=== PATIENT | male | born 1970 | race American Indian/Alaskan Native ===

== ENCOUNTER 2021-11-04 18:33 | Inpatient (IN) | payer MEDICAID ==
[2021-11-04] MEDS ORDERED: VANCOMYCIN/NS 1 GM/250 ML 1 GM/250 ML BAG IV ONE (21:43)
[2021-11-04] MEDS ORDERED: PIPERACIL/TAZOBACTA 4.5/NS 100 4.5 GM/100 ML VIAL IV ONE (21:44)
[2021-11-04 22:12] LABS: Basophils # (Auto) 0.1 K/mm3 (0.0-0.1); Basophils % (Auto) 0.7 % (0.0-1.8); Eosinophils # (Auto) 0.3 K/mm3 (0.0-0.4); Eosinophils % (Auto) 2.5 % (0.0-4.3); Hematocrit 34.7 % (35.5-45.6); Hemoglobin 12.4 gm/dl (11.8-15.2); Lymphocytes # (Auto) 2.1 K/mm3 (1.2-5.4); Lymphocytes % (Auto) 20.7 % (13.4-35.0); Mean Corpuscular HGB Conc 36 % (32-34); Mean Corpuscular Volume 77 fl (84-94); Monocytes # (Auto) 0.9 K/mm3 (0.0-0.8); Monocytes % (Auto) 9.3 % (0.0-7.3); Platelet Count 526 K/mm3 (140-440); Red Blood Count 4.54 M/mm3 (3.65-5.03); Red Cell Distribution Width 16.4 % (13.2-15.2)
[2021-11-04 22:24] LABS: INR 0.99 (0.87-1.13)
[2021-11-04 22:25] LABS: Partial Thromboplastin Time 26.3 Sec. (24.2-36.6)
--- NOTE | 2021-11-04 22:32 | XRay Report ---
RIGHT FOOT 3 VIEWS INDICATION / CLINICAL INFORMATION: wound, possible osteo COMPARISON: None available. FINDINGS: BONES / JOINT(S): No acute appearing fracture. Gross distraction involving the distal aspect of the f ifth metatarsal with adjacent periosteal reaction and bony fragmentation. The phalanges of the fifth digit are subluxed/dislocated. There is likely osteomyelitis involving the base of the proximal phala nx of the fifth digit. Small calcaneal spur. SOFT TISSUES: Large open wound at the level of the fifth metatarsal anteriorly and laterally. ADDITIONAL FINDINGS: None. Signer Name: Kobe Escobedo MD Signed: 11/04/2021 10:27 PM Workstation Name: [id number]
[2021-11-04 22:36] LABS: Alanine Aminotransferase 14 units/L (7-56); Albumin 3.5 g/dL (3.9-5); BUN/Creatinine Ratio 15; Blood Urea Nitrogen 16 mg/dL (9-20); Calcium 9.1 mg/dL (8.4-10.2); Hemolysis Index 5
[2021-11-04] MEDS ORDERED: cloNIDine 0.1 MG TAB PO ONE (23:43)
--- NOTE | 2021-11-04 23:49 | Emergency Department Report ---
- General Chief complaint: Skin/Abscess/Foreign Body Stated complaint: ABCESS ON LEFT FOOT Time Seen by Provider: 11/04/21 21:14 Source: patient Mode of arrival: Ambulatory Limitations: No Limitations - History of Present Illness Initial comments: 51-year-old obese black male patient with a past medical history of hypertension and prediabetes presents to the emergency department for evaluation of 3 to 4- week history of right foot abscess. He states that about 3 weeks ago he noticed draining from his right foot from an abscess that had been there the week prior. He states that abscess drained and left an open wound, and he has been soaking wound the past 3 weeks but has not had any improvement. He denies fever nausea vomiting chills but states that he has had persistent drainage from wound. MD complaint: abscess/boil, discoloration -: Gradual, week(s) (3-4) Tetanus Up to Date: unsure Location: R foot Severity scale (0 -10): 0 Associated symptoms: denies other symptoms - Related Data Allergies Allergy/AdvReac Type Severity Reaction Status Date / Time No Known Allergies Allergy Verified 11/04/21 18:37 Abscess Boil HPI - HPI Chief Complaint: Skin/Abscess/Foreign Body Stated Complaint: ABCESS ON LEFT FOOT Time Seen by Provider: 11/04/21 21:14 Allergies/Adverse Reactions: Allergies Allergy/AdvReac Type Severity Reaction Status Date / Time No Known Allergies Allergy Verified 11/04/21 18:37 ED Review of Systems ROS: Stated complaint: ABCESS ON LEFT FOOT Other details as noted in HPI Comment: All other systems reviewed and negative Constitutional: denies: chills, diaphoresis, fever, malaise, weakness Eyes: denies: eye pain, eye discharge ENT: denies: ear pain, throat pain Respiratory: denies: cough, orthopnea, shortness of breath, SOB with exertion, SOB at rest Cardiovascular: edema. denies: chest pain, palpitations, dyspnea on exertion, orthopnea, syncope, paroxysmal nocturnal dyspnea Endocrine: no symptoms reported Gastrointestinal: denies: abdominal pain, nausea, vomiting, hematemesis, melena, hematochezia Genitourinary: denies: urgency, dysuria, frequency Musculoskeletal: denies: back pain, joint swelling, arthralgia, myalgia Skin: other (Open wound to right foot). denies: rash, lesions Neurological: denies: headache, weakness Psychiatric: denies: anxiety, depression ED Past Medical Hx - Past Medical History Previous Medical History?: Yes Hx Diabetes: Yes - Surgical History Past Surgical History?: No ED Physical Exam - General Limitations: No Limitations General appearance: alert, in no apparent distress - Head Head exam: Present: atraumatic, normocephalic - Eye Eye exam: Present: normal appearance. Absent: conjunctival injection - Neck Neck exam: Present: normal inspection - Respiratory Respiratory exam: Present: normal lung sounds bilaterally. Absent: respiratory distress, wheezes, rales, rhonchi, chest wall tenderness, accessory muscle use, decreased breath sounds - Cardiovascular Cardiovascular Exam: Present: tachycardia, normal heart sounds - GI/Abdominal GI/Abdominal exam: Present: soft, normal bowel sounds. Absent: guarding, rebound, rigid - Expanded Lower Extremity Exam Right Hip exam: Present: full ROM Knee exam: Present: normal inspection, full ROM. Absent: tenderness, swelling Lower Leg exam: Present: normal inspection, full ROM, swelling. Absent: tenderness, Dayanara's sign Ankle exam: Present: tenderness, swelling, erythema. Absent: deformity, dislocation Foot/Toe exam: Present: tenderness, swelling, erythema. Absent: calcaneal tenderness Neuro vascular tendon exam: Present: no vascular compromise, sensory deficit. Absent: pulse deficit, abnormal cap refill, extremity cold to touch, pallor Gait: Positive: observed and normal 1 - Open wound to area that is discolored with purulent drainage noted. 1 - Noted to have small wound that is dry and black discolored area. - Back Exam Back exam: Present: normal inspection, full ROM. Absent: tenderness, CVA tenderness (R), CVA tenderness (L), paraspinal tenderness, vertebral tenderness - Neurological Exam Neurological exam: Present: alert, oriented X3 - Psychiatric Psychiatric exam: Present: normal affect, normal mood - Skin Skin exam: Present: warm, dry ED Course Vital Signs 11/04/21 18:40 Temperature 98.9 F Pulse Rate 111 H Respiratory 18 Rate Blood Pressure 195/106 O2 Sat by Pulse 98 Oximetry ED Medical Decision Making - Lab Data Result diagrams: 11/04/21 21:47 11/04/21 21:47 - Radiology Data Radiology results: report reviewed Right foot x-ray= FINDINGS: BONES / JOINT(S): No acute appearing fracture. Gross distraction involving the distal aspect of the fifth metatarsal with adjacent periosteal reaction and bony fragmentation. The phalanges of the fifth digit are subluxed/dislocated. There is likely osteomyelitis involving the base of the proximal phalanx of the fifth digit. Small calcaneal spur. SOFT TISSUES: Large open wound at the level of the fifth metatarsal anteriorly and laterally. - Medical Decision Making 51-year-old obese black male patient with a past medical history of hypertension and prediabetes presents to the emergency department for evaluation of 3 to 4- week history of right foot abscess. He states that about 3 weeks ago he noticed draining from his right foot from an abscess that had been there the week prior. He states that abscess drained and left an open wound, and he has been soaking wound the past 3 weeks but has not had any improvement. He denies fever nausea vomiting chills but states that he has had persistent drainage from wound. Patient noted to have osteomyelitis on x-ray. Lactic acid 1.6, and WBC 10. Blood cultures and wound cultures were sent. Patient was treated with 1 g vancomycin IV and Zosyn 4.5 mg in the ED. Spoke with BONNIE Gregory who agreed to admit patient for osteomyelitis. Care turned over to the hospitalist team for admission and further evaluation. Critical care attestation.: If time is entered above; I have spent that time in minutes in the direct care of this critically ill patient, excluding procedure time. ED Disposition Clinical Impression: Osteomyelitis Disposition: 30 STILL A PATIENT Is pt being admited?: Yes Does the pt Need Aspirin: No Condition: Stable Referrals: PRIMARY CARE, [Primary Care Provider] - 3-5 Days Time of Disposition: 23:57
[2021-11-05] MEDS ORDERED: DEXTROSE 50% IN WATER (25GM) 50 ML SYRINGE IV PRN (00:10)
[2021-11-05] MEDS ORDERED: MORPHINE 4 MG/1 ML INJ IV PRN (00:10)
[2021-11-05] MEDS ORDERED: MORPHINE 2 MG/1 ML INJ IV PRN (00:10)
[2021-11-05] MEDS ORDERED: ONDANSETRON 4 MG/2 ML INJ IV PRN (00:10)
[2021-11-05] MEDS ORDERED: MAGNESIUM HYDROXIDE (MOM) ORAL LIQD UDC PO PRN (00:10)
[2021-11-05] MEDS ORDERED: ACETAMINOPHEN 325 MG TAB PO PRN (00:10)
--- NOTE | 2021-11-05 00:24 | History and Physical Report ---
History of Present Illness Date of examination: 11/05/21 Date of admission: 11/05/2021 Chief complaint: Right foot Wound History of present illness: 51-year-old male with significant past medical history of hypertension and diabetes mellitus presented to the emergency room today complaining of right foot wound. Patient had noticed drainage from an abscess on the right foot about 3 weeks ago and he has subsequently developed an open wound. Indicates that he has been soaking his foot over the past few weeks but has not had any improvement. He denies any fever or chills, no nausea vomiting, no headache or dizziness and no diaphoresis. He denies any chest pain or shortness of breath. Work-up in the emergency room today, x-ray of the right foot reveals likely osteomyelitis involving the base of the proximal phalanx of the fifth digit. Lab was significant for blood glucose of 216. Patient has been admitted and placed on empiric IV antibiotics. Past History Past Medical History: diabetes Past Surgical History: No surgical history Social history: no significant social history Family history: no significant family history Medications and Allergies Allergies Allergy/AdvReac Type Severity Reaction Status Date / Time No Known Allergies Allergy Verified 11/04/21 18:37 Home Medications Medication Instructions Recorded Confirmed Last Taken Type No Known Home Medications [No 11/05/21 11/05/21 Unknown History Reported Home Medications] Active Meds: Active Medications Acetaminophen (Acetaminophen 325 Mg Tab) 650 mg PO Q4H PRN PRN Reason: Pain MILD(1-3)/Fever >100.5/[place] Dextrose (Dextrose 50% In Water (25gm) 50 Ml Syringe) 50 ml IV Q30MIN PRN; Protocol PRN Reason: Hypoglycemia Dextrose (Dextrose 50% In Water (25gm) 50 Ml Syringe) 50 ml IV Q30MIN PRN; Protocol PRN Reason: Hypoglycemia Heparin Sodium (Porcine) (Heparin 5,000 Unit/1 Ml Vial) 5,000 unit SUB-Q Q8HR TAURUS Sodium Chloride (Nacl 0.9% 1000 Ml) 1,000 mls @ 125 mls/hr IV DIRECT TAURUS Insulin Human Lispro (Insulin Lispro 100 Unit/Ml) 0 unit SUB-Q ACHS TAURUS; Protocol Magnesium Hydroxide (Magnesium Hydroxide (Mom) Oral Liqd Udc) 30 ml PO Q4H PRN PRN Reason: Constipation Morphine Sulfate (Morphine 2 Mg/1 Ml Inj) 2 mg IV Q4H PRN PRN Reason: Pain, Moderate (4-6) Morphine Sulfate (Morphine 4 Mg/1 Ml Inj) 4 mg IV Q4H PRN PRN Reason: Pain , Severe (7-10) Ondansetron HCl (Ondansetron 4 Mg/2 Ml Inj) 4 mg IV Q8H PRN PRN Reason: Nausea And Vomiting Sodium Chloride (Sodium Chloride 0.9% 10 Ml Flush Syringe) 10 ml IV BID TAURUS Sodium Chloride (Sodium Chloride 0.9% 10 Ml Flush Syringe) 10 ml IV PRN PRN PRN Reason: LINE FLUSH Review of Systems Constitutional: no fever, no chills Ears, nose, mouth and throat: no nasal congestion, no sore throat Cardiovascular: no chest pain, no palpitations Respiratory: no cough, no shortness of breath Gastrointestinal: no abdominal pain, no nausea, no vomiting, no diarrhea Genitourinary Male: no dysuria, no hematuria, no flank pain, no nocturia Musculoskeletal: no neck pain, no low back pain Integumentary: no rash, no pruritis Neurological: no headaches, no confusion Psychiatric: no anxiety, no depression Endocrine: no polyphagia, no polydipsia, no polyuria, no nocturia Exam - Constitutional Vitals: Temp Pulse Resp BP Pulse Ox 98.9 F 111 H 18 195/106 98 11/04/21 18:40 11/04/21 18:40 11/04/21 18:40 11/04/21 18:40 11/04/21 18:40 General appearance: Present: no acute distress, well-nourished, obese - EENT Eyes: Present: PERRL, EOM intact. Absent: scleral icterus ENT: hearing intact, clear oral mucosa, dentition normal - Neck Neck: Present: supple, normal ROM - Respiratory Respiratory effort: normal Respiratory: bilateral: CTA - Cardiovascular Rhythm: regular Heart Sounds: Present: S1 & S2. Absent: gallop, systolic murmur, diastolic murmur, rub, click - Extremities Extremities: no ischemia, pulses intact, pulses symmetrical, Full ROM Extremity abnormal: edema (1+ Bilateral lower extremity edema), ulceration (3X4 cm open ulcer on dorsum of right foot with minimal drainage,Ulceration on right great toe.) Peripheral Pulses: within normal limits - Abdominal General gastrointestinal: Present: soft, non-tender, non-distended, normal bowel sounds. Absent: mass - Integumentary Integumentary: Present: clear, warm, dry, normal turgor. Absent: rash - Musculoskeletal Musculoskeletal: strength equal bilaterally - Psychiatric Psychiatric: appropriate mood/affect, intact judgment & insight, memory intact, cooperative - Neurologic Neurologic: CNII-XII intact, no focal deficits, moves all extremities Results - Labs CBC & Chem 7: 11/04/21 21:47 11/04/21 21:47 Labs: Abnormal lab results 11/04/21 11/04/21 11/04/21 Range/Units 18:42 21:47 21:47 Hct 34.7 L (35.5-45.6) % MCV 77 L (84-94) fl MCH 27 L (28-32) pg MCHC 36 H (32-34) % RDW 16.4 H (13.2-15.2) % Plt Count 526 H (140-440) K/mm3 [place] % (Auto) 9.3 H (0.0-7.3) % [place] # (Auto) 0.9 H (0.0-0.8) K/mm3 Glucose 216 H (75-100) mg/dL POC Glucose 193 H (70-105) mg/dL Alkaline Phosphatase 157 H (35-129) units/L Albumin 3.5 L (3.9-5) g/dL Assessment and Plan - Patient Problems (1) Osteomyelitis Current Visit: Yes Status: Acute Plan to address problem: Patient placed on empiric IV antibiotics. We requests infectious disease evaluation of recommendations. (2) Hyperglycemia Current Visit: Yes Status: Acute Plan to address problem: Patient placed on sliding scale insulin. We will monitor Accu-Cheks closely. (3) DVT prophylaxis Current Visit: Yes Status: Acute Plan to address problem: Patient placed on subcutaneous heparin. (4) Morbid obesity with BMI of 50.0-59.9, adult Current Visit: Yes Status: Acute Plan to address problem: Dietary consult requested. Lifestyle modification encouraged. (5) Full code status Current Visit: Yes Status: Acute Plan to address problem: Patient is full code.
[2021-11-05] MEDS ORDERED: DEXTROSE 10% *Hypoglycemia IV PRN (00:44)
[2021-11-05] MEDS ORDERED: VANCOMYCIN PHARMACY TO DOSE IV SCH (01:00)
[2021-11-05] MEDS ORDERED: VANCOMYCIN/NS 1 GM/250 ML 1 GM/250 ML BAG IV ONE (02:00)
[2021-11-05] MEDS: SODIUM CHLORIDE 0.9% 1000 ML 1,000 ML IV SCH ×2 (02:25→12:29)
[2021-11-05] MEDS: HEPARIN 5,000 UNIT/1 ML VIAL SUB-Q SCH ×3 (05:33→21:10)
[2021-11-05] MEDS: PIPERACIL/TAZOBACTA 4.5/NS 100 4.5 GM/100 ML VIAL IV SCH ×3 (05:33→21:23)
[2021-11-05 06:44] LABS: Bilirubin,Urine NEG (Negative); Blood,Urine NEG (Negative); Color,Urine Yellow (Yellow); Protein,Urine <15 mg/dL mg/dL (Negative); Urobilinogen,Urine < 2.0 mg/dL (<2.0)
[2021-11-05] MEDS: INSULIN LISPRO 100 UNIT/ML SUB-Q SCH ×4 (07:30→21:27)
[2021-11-05] MEDS: VANCOMYCIN 2,000 MG in SODIUM CHLORIDE 0.9% 500 ML 500 ML IV SCH (12:24)
--- NOTE | 2021-11-05 12:39 | Event Note ---
Date: 11/05/21 Patient updated about plan at bedside. Diabetes was recently treated with diet and exercise. Discussed need for pharmacological treatment. Patients weight exceeds the weight requirement for MRI, so we will hold for now. We will continue with current plan per Dr. Min VAZQUEZ.
[2021-11-06] MEDS: VANCOMYCIN 2,000 MG in SODIUM CHLORIDE 0.9% 500 ML 500 ML IV SCH ×2 (00:10→12:56)
[2021-11-06] MEDS: SODIUM CHLORIDE 0.9% 1000 ML 1,000 ML IV SCH (00:11)
[2021-11-06 05:27] LABS: Basophils # (Auto) 0.1 K/mm3 (0.0-0.1); Eosinophils # (Auto) 0.4 K/mm3 (0.0-0.4); Eosinophils % (Auto) 5.2 % (0.0-4.3); Hematocrit 31.8 % (35.5-45.6); Hemoglobin 11.5 gm/dl (11.8-15.2); Lymphocytes # (Auto) 2.3 K/mm3 (1.2-5.4); Lymphocytes % (Auto) 28.8 % (13.4-35.0); Mean Corpuscular HGB Conc 36 % (32-34); Mean Corpuscular Volume 76 fl (84-94); Monocytes # (Auto) 0.8 K/mm3 (0.0-0.8); Monocytes % (Auto) 10.2 % (0.0-7.3); Platelet Count 446 K/mm3 (140-440); Red Blood Count 4.18 M/mm3 (3.65-5.03); Red Cell Distribution Width 16.5 % (13.2-15.2)
[2021-11-06 05:28] LABS: BUN/Creatinine Ratio 12; Blood Urea Nitrogen 13 mg/dL (9-20); Calcium 8.5 mg/dL (8.4-10.2); Hemolysis Index 21
[2021-11-06] MEDS: PIPERACIL/TAZOBACTA 4.5/NS 100 4.5 GM/100 ML VIAL IV SCH ×3 (06:19→21:45)
[2021-11-06] MEDS: HEPARIN 5,000 UNIT/1 ML VIAL SUB-Q SCH ×3 (06:20→21:46)
[2021-11-06] MEDS: INSULIN LISPRO 100 UNIT/ML SUB-Q SCH ×4 (07:30→21:46)
--- NOTE | 2021-11-06 08:33 | Progress Note ---
Assessment and Plan Assessment and plan: #Diabetic foot ulcer #Presumbed osteomyelitis -Xray shows changes likely to be osteomyelitis at the base of the 5th digit of the R foot -Patient exceeds weight requirement for MRI -continue IV antibiotics -ID consulted by admitting Physician, awaiting recommendations -wound care per nursing #Type II Diabetes with hyperglycemia -managed with diet outpatient -discussed importance of glycemic control to patient and will require oral medications at discharge -SSI while inpatient with accucheks #Elevated blood pressure -BP with elevated BP, concerned he may have underlying HTN given other co- morbidities -will start nifedipine 30mg qday #Morbid obesity -BMI 51.4 -Counseled patient on the importance of weight loss, incorporating exercise, and dietary changes (lean meats, fresh fruits and vegetables, and water intake). Patient expresses understanding. -encouraged outpatient evaluation for bariatric surgery -Time: +15 min History Interval history: Patient has no complaints. Updated about care plan. Hospitalist Physical - Physical exam Narrative exam: GENERAL: Well-developed well-nourished. In no acute distress. CHEST/LUNGS: CTAB on room air HEART/CARDIOVASCULAR: RRR. No murmur, rubs or gallops appreciated. ABDOMEN: +BS. NT/ND. NEURO: No focal motor deficit. Follows all commands. MUSCULOSKELETAL: No joint effusion EXTREMITIES: Bilateral lower extremity with trace edema. Right foot bandaged, C/D/I PSYCH: Cooperative. - Constitutional Vitals: Temp Pulse Resp BP Pulse Ox 98.2 F 78 20 161/96 96 11/06/21 05:13 11/06/21 07:02 11/06/21 05:13 11/06/21 07:02 11/06/21 07:38 General appearance: Present: no acute distress, well-nourished, obese Results - Labs CBC & Chem 7: 11/06/21 04:51 11/06/21 04:51 Labs: Laboratory Last Values WBC 8.0 K/mm3 (4.5-11.0) 11/06/21 04:51 RBC 4.18 M/mm3 (3.65-5.03) 11/06/21 04:51 Hgb 11.5 gm/dl (11.8-15.2) L 11/06/21 04:51 Hct 31.8 % (35.5-45.6) L 11/06/21 04:51 MCV 76 fl (84-94) L 11/06/21 04:51 MCH 28 pg (28-32) 11/06/21 04:51 MCHC 36 % (32-34) H 11/06/21 04:51 RDW 16.5 % (13.2-15.2) H 11/06/21 04:51 Plt Count 446 K/mm3 (140-440) H 11/06/21 04:51 Lymph % (Auto) 28.8 % (13.4-35.0) 11/06/21 04:51 [place] % (Auto) 10.2 % (0.0-7.3) H 11/06/21 04:51 Eos % (Auto) 5.2 % (0.0-4.3) H 11/06/21 04:51 Baso % (Auto) 1.0 % (0.0-1.8) 11/06/21 04:51 Lymph # (Auto) 2.3 K/mm3 (1.2-5.4) 11/06/21 04:51 [place] # (Auto) 0.8 K/mm3 (0.0-0.8) 11/06/21 04:51 Eos # (Auto) 0.4 K/mm3 (0.0-0.4) 11/06/21 04:51 Baso # (Auto) 0.1 K/mm3 (0.0-0.1) 11/06/21 04:51 Seg Neutrophils % 54.8 % (40.0-70.0) 11/06/21 04:51 Seg Neutrophils # 4.4 K/mm3 (1.8-7.7) 11/06/21 04:51 PT 14.2 Sec. (12.2-14.9) 11/04/21 21:47 INR 0.99 (0.87-1.13) 11/04/21 21:47 APTT 26.3 Sec. (24.2-36.6) 11/04/21 21:47 Sodium 142 mmol/L (137-145) 11/06/21 04:51 Potassium 4.1 mmol/L (3.6-5.0) 11/06/21 04:51 Chloride 107.4 mmol/L (98-107) H 11/06/21 04:51 Carbon Dioxide 22 mmol/L (22-30) 11/06/21 04:51 Anion Gap 17 mmol/L 11/06/21 04:51 BUN 13 mg/dL (9-20) 11/06/21 04:51 Creatinine 1.1 mg/dL (0.8-1.3) 11/06/21 04:51 Estimated GFR > 60 ml/min 11/06/21 04:51 BUN/Creatinine Ratio 12 % 11/06/21 04:51 Glucose 146 mg/dL (75-100) H 11/06/21 04:51 POC Glucose 172 mg/dL (70-105) H 11/06/21 07:36 Hemoglobin A1c 9.2 % (4-6) H 11/04/21 21:47 Lactic Acid 1.60 mmol/L (0.7-2.0) 11/04/21 21:51 Calcium 8.5 mg/dL (8.4-10.2) 11/06/21 04:51 Total Bilirubin < 0.20 mg/dL (0.1-1.2) 11/04/21 21:47 AST 10 units/L (5-40) 11/04/21 21:47 ALT 14 units/L (7-56) 11/04/21 21:47 Alkaline Phosphatase 157 units/L (35-129) H 11/04/21 21:47 Total Protein 7.9 g/dL (6.3-8.2) 11/04/21 21:47 Albumin 3.5 g/dL (3.9-5) L 11/04/21 21:47 Albumin/Globulin Ratio 0.8 % 11/04/21 21:47 Urine Color Yellow (Yellow) 11/05/21 06:00 Urine Turbidity Clear (Clear) 11/05/21 06:00 Urine pH 5.0 (5.0-7.0) 11/05/21 06:00 Ur Specific [place] 1.017 (1.003-1.030) 11/05/21 06:00 Urine Protein <15 mg/dl mg/dL (Negative) 11/05/21 06:00 Urine Glucose (UA) Neg mg/dL (Negative) 11/05/21 06:00 Urine Ketones Neg mg/dL (Negative) 11/05/21 06:00 Urine Blood Neg (Negative) 11/05/21 06:00 Urine Nitrite Neg (Negative) 11/05/21 06:00 Urine Bilirubin Neg (Negative) 11/05/21 06:00 Urine Urobilinogen < 2.0 mg/dL (<2.0) 11/05/21 06:00 Ur Leukocyte Esterase Neg (Negative) 11/05/21 06:00 Urine WBC (Auto) 1.0 /HPF (0.0-6.0) 11/05/21 06:00 Urine RBC (Auto) 1.0 /HPF (0.0-6.0) 11/05/21 06:00 Microbiology: Microbiology 11/04/21 21:51 Peripheral/Venous Blood Culture - Preliminary NO GROWTH AFTER 24 HOURS 11/04/21 21:51 Peripheral/Venous Blood Culture - Preliminary NO GROWTH AFTER 24 HOURS Booker/IV: Voiding Method Urinal Active Medications - Current Medications Current Medications: Generic Name Dose Route Start Last Admin Trade Name Freq PRN Reason Stop Dose Admin Acetaminophen 650 mg 11/05/21 00:10 Acetaminophen 325 Mg Tab PO Q4H PRN Pain MILD(1-3)/Fever >100.5/[place] Dextrose 0 ml 11/05/21 00:44 Dextrose 10% *Hypoglycemia IV DIRECT PRN Hypoglycemia Protocol Heparin Sodium (Porcine) 5,000 unit 11/05/21 06:00 11/06/21 06:20 Heparin 5,000 Unit/1 Ml Vial SUB-Q 5,000 unit Q8HR TAURUS Administration Piperacillin Sod/Tazobactam Sod 4.5 gm in 100 mls @ 200 mls/hr 11/05/21 06:00 11/06/21 06:19 Zosyn/Ns 4.5gm/100ml IV 200 mls/hr Q8H TAURUS Administration Protocol Vancomycin HCl 2,000 mg/ 540 mls @ 250 mls/hr 11/05/21 12:00 11/06/21 00:10 Sodium Chloride IV 250 mls/hr Q12H TAURUS Administration Insulin Human Lispro 0 unit 11/05/21 07:30 11/06/21 07:30 Insulin Lispro 100 Unit/Ml SUB-Q 1 unit ACHS TAURUS Administration Protocol Magnesium Hydroxide 30 ml 11/05/21 00:10 Magnesium Hydroxide (Mom) Oral Liqd Udc PO Q4H PRN Constipation Morphine Sulfate 2 mg 11/05/21 00:10 Morphine 2 Mg/1 Ml Inj IV Q4H PRN Pain, Moderate (4-6) Morphine Sulfate 4 mg 11/05/21 00:10 Morphine 4 Mg/1 Ml Inj IV Q4H PRN Pain , Severe (7-10) Ondansetron HCl 4 mg 11/05/21 00:10 Ondansetron 4 Mg/2 Ml Inj IV Q8H PRN Nausea And Vomiting Sodium Chloride 10 ml 11/05/21 10:00 11/05/21 21:10 Sodium Chloride 0.9% 10 Ml Flush Syringe IV 10 ml BID TAURUS Administration Sodium Chloride 10 ml 11/05/21 00:10 Sodium Chloride 0.9% 10 Ml Flush Syringe IV PRN PRN LINE FLUSH Nutrition/Malnutrition Assess - Dietary Evaluation Nutrition/Malnutrition Findings: Nutrition Notes Start: 11/05/21 12:25 Freq: Status: Active Protocol: Document 11/05/21 12:26 DARNELL (Rec: 11/05/21 12:36 DARNELL [id number]) Nutrition Notes Need for Assessment generated from: MD Order,Education Initial or Follow up Brief Note Current Diagnosis Diabetes,Hypertension Other Pertinent Diagnosis R-Foot Osteomyelitis. Current Diet Cardiac/Consistent Carbohydrates Diet (since B ). Height 6 ft 4 in Weight 189 kg Dent Body Weight (kg) 91.81 BMI 50.7 Intake Prior to Admission Good Weight change and time frame Pt denies having loss body weight [employer]. Weight Status Morbidly Obese Subjective/Other Information RD consult for Nutrition Education. No report available on Pt's PO intake of meals at the time. Pt presents a gradually- worsening 3-week open wound in the R-Foot. Pt still on ED, not a candidate for Nutrition Education at the time, will assess feasibility on F/U. Percent of energy/protein needs met: Prescribed Cardiac/Consistent Carbohydrates Diet provides for energy/protein needs (1, 977 Kcal/86 g) during LOS. Nutrition Intervention Follow-Up By: 11/10/21 Additional Comments Nutrition education will be provided on F/U, if feasible. Continue monitoring food tolerance, %PO intake of meals , and BM.
[2021-11-06] MEDS ORDERED: hydrALAZINE 20 MG/1 ML INJ IV PRN (12:19)
[2021-11-06] MEDS: NIFEdipine XL 30 MG TAB PO SCH (12:55)
[2021-11-07] MEDS: VANCOMYCIN 2,000 MG in SODIUM CHLORIDE 0.9% 500 ML 500 ML IV SCH ×2 (00:48→13:00)
[2021-11-07] MEDS: HEPARIN 5,000 UNIT/1 ML VIAL SUB-Q SCH ×3 (05:55→22:47)
[2021-11-07] MEDS: PIPERACIL/TAZOBACTA 4.5/NS 100 4.5 GM/100 ML VIAL IV SCH ×2 (05:55→12:59)
[2021-11-07] MEDS: INSULIN LISPRO 100 UNIT/ML SUB-Q SCH ×4 (08:45→22:48)
[2021-11-07] MEDS: NIFEdipine XL 30 MG TAB PO SCH (09:47)
--- NOTE | 2021-11-07 14:03 | Progress Note ---
Assessment and Plan Assessment and plan: #Diabetic foot ulcer #Presumbed osteomyelitis -Xray shows changes likely to be osteomyelitis at the base of the 5th digit of the R foot -Patient exceeds weight requirement for MRI -continue IV antibiotics -ID consulted by admitting Physician, awaiting recommendations -wound care per nursing #Type II Diabetes with hyperglycemia -managed with diet outpatient, A1C 9.2% -discussed importance of glycemic control to patient and will require oral medications at discharge -SSI while inpatient with accucheks #Hypertension -continue nifedipine 30mg qday #Morbid obesity -BMI 51.4 -Counseled patient on the importance of weight loss, incorporating exercise, and dietary changes (lean meats, fresh fruits and vegetables, and water intake). Patient expresses understanding. -encouraged outpatient evaluation for bariatric surgery -Time: +15 min History Interval history: No acute events overnight. Patient denies pain in the right lower extremity. No complaints at this time. Hospitalist Physical - Physical exam Narrative exam: GENERAL: Well-developed well-nourished. In no acute distress. CHEST/LUNGS: CTAB on room air HEART/CARDIOVASCULAR: RRR. No murmur, rubs or gallops appreciated. ABDOMEN: +BS. NT/ND. NEURO: No focal motor deficit. Follows all commands. MUSCULOSKELETAL: No joint effusion EXTREMITIES: Bilateral lower extremity with trace edema. Right foot bandaged, C/D/I PSYCH: Cooperative. - Constitutional Vitals: Temp Pulse Resp BP Pulse Ox 98.1 F 81 18 138/82 96 11/07/21 09:46 11/07/21 09:50 11/07/21 09:46 11/07/21 09:46 11/07/21 10:00 General appearance: Present: no acute distress, well-nourished, obese Results - Labs CBC & Chem 7: 11/06/21 04:51 11/06/21 04:51 Labs: Laboratory Last Values WBC 8.0 K/mm3 (4.5-11.0) 11/06/21 04:51 RBC 4.18 M/mm3 (3.65-5.03) 11/06/21 04:51 Hgb 11.5 gm/dl (11.8-15.2) L 11/06/21 04:51 Hct 31.8 % (35.5-45.6) L 11/06/21 04:51 MCV 76 fl (84-94) L 11/06/21 04:51 MCH 28 pg (28-32) 11/06/21 04:51 MCHC 36 % (32-34) H 11/06/21 04:51 RDW 16.5 % (13.2-15.2) H 11/06/21 04:51 Plt Count 446 K/mm3 (140-440) H 11/06/21 04:51 Lymph % (Auto) 28.8 % (13.4-35.0) 11/06/21 04:51 [place] % (Auto) 10.2 % (0.0-7.3) H 11/06/21 04:51 Eos % (Auto) 5.2 % (0.0-4.3) H 11/06/21 04:51 Baso % (Auto) 1.0 % (0.0-1.8) 11/06/21 04:51 Lymph # (Auto) 2.3 K/mm3 (1.2-5.4) 11/06/21 04:51 [place] # (Auto) 0.8 K/mm3 (0.0-0.8) 11/06/21 04:51 Eos # (Auto) 0.4 K/mm3 (0.0-0.4) 11/06/21 04:51 Baso # (Auto) 0.1 K/mm3 (0.0-0.1) 11/06/21 04:51 Seg Neutrophils % 54.8 % (40.0-70.0) 11/06/21 04:51 Seg Neutrophils # 4.4 K/mm3 (1.8-7.7) 11/06/21 04:51 PT 14.2 Sec. (12.2-14.9) 11/04/21 21:47 INR 0.99 (0.87-1.13) 11/04/21 21:47 APTT 26.3 Sec. (24.2-36.6) 11/04/21 21:47 Sodium 142 mmol/L (137-145) 11/06/21 04:51 Potassium 4.1 mmol/L (3.6-5.0) 11/06/21 04:51 Chloride 107.4 mmol/L (98-107) H 11/06/21 04:51 Carbon Dioxide 22 mmol/L (22-30) 11/06/21 04:51 Anion Gap 17 mmol/L 11/06/21 04:51 BUN 13 mg/dL (9-20) 11/06/21 04:51 Creatinine 1.1 mg/dL (0.8-1.3) 11/06/21 04:51 Estimated GFR > 60 ml/min 11/06/21 04:51 BUN/Creatinine Ratio 12 % 11/06/21 04:51 Glucose 146 mg/dL (75-100) H 11/06/21 04:51 POC Glucose 208 mg/dL (70-105) H 11/07/21 11:40 Hemoglobin A1c 9.2 % (4-6) H 11/04/21 21:47 Lactic Acid 1.60 mmol/L (0.7-2.0) 11/04/21 21:51 Calcium 8.5 mg/dL (8.4-10.2) 11/06/21 04:51 Total Bilirubin < 0.20 mg/dL (0.1-1.2) 11/04/21 21:47 AST 10 units/L (5-40) 11/04/21 21:47 ALT 14 units/L (7-56) 11/04/21 21:47 Alkaline Phosphatase 157 units/L (35-129) H 11/04/21 21:47 Total Protein 7.9 g/dL (6.3-8.2) 11/04/21 21:47 Albumin 3.5 g/dL (3.9-5) L 11/04/21 21:47 Albumin/Globulin Ratio 0.8 % 11/04/21 21:47 Urine Color Yellow (Yellow) 11/05/21 06:00 Urine Turbidity Clear (Clear) 11/05/21 06:00 Urine pH 5.0 (5.0-7.0) 11/05/21 06:00 Ur Specific [place] 1.017 (1.003-1.030) 11/05/21 06:00 Urine Protein <15 mg/dl mg/dL (Negative) 11/05/21 06:00 Urine Glucose (UA) Neg mg/dL (Negative) 11/05/21 06:00 Urine Ketones Neg mg/dL (Negative) 11/05/21 06:00 Urine Blood Neg (Negative) 11/05/21 06:00 Urine Nitrite Neg (Negative) 11/05/21 06:00 Urine Bilirubin Neg (Negative) 11/05/21 06:00 Urine Urobilinogen < 2.0 mg/dL (<2.0) 11/05/21 06:00 Ur Leukocyte Esterase Neg (Negative) 11/05/21 06:00 Urine WBC (Auto) 1.0 /HPF (0.0-6.0) 11/05/21 06:00 Urine RBC (Auto) 1.0 /HPF (0.0-6.0) 11/05/21 06:00 Vancomycin Trough 15.5 ug/mL (5.0-20.0) 11/06/21 11:54 Microbiology: Microbiology 11/05/21 Unknown Foot - Right Wound Culture - Preliminary Beta Hemolytic Strep Group B 11/04/21 21:51 Peripheral/Venous Blood Culture - Preliminary NO GROWTH AFTER 48 HOURS 11/04/21 21:51 Peripheral/Venous Blood Culture - Preliminary NO GROWTH AFTER 48 HOURS [place]/IV: Voiding Method Urinal Active Medications - Current Medications Current Medications: Generic Name Dose Route Start Last Admin Trade Name Freq PRN Reason Stop Dose Admin Acetaminophen 650 mg 11/05/21 00:10 Acetaminophen 325 Mg Tab PO Q4H PRN Pain MILD(1-3)/Fever >100.5/[place] Dextrose 0 ml 11/05/21 00:44 Dextrose 10% *Hypoglycemia IV DIRECT PRN Hypoglycemia Protocol Heparin Sodium (Porcine) 5,000 unit 11/05/21 06:00 11/07/21 13:00 Heparin 5,000 Unit/1 Ml Vial SUB-Q 5,000 unit Q8HR [facility] Administration Hydralazine HCl 10 mg 11/06/21 12:19 Hydralazine 20 Mg/1 Ml Inj IV Q4HR PRN Hypertension Piperacillin Sod/Tazobactam Sod 4.5 gm in 100 mls @ 200 mls/hr 11/05/21 06:00 11/07/21 12:59 Zosyn/Ns 4.5gm/100ml IV 200 mls/hr Q8H [facility] Administration Protocol Vancomycin HCl 2,000 mg/ 540 mls @ 250 mls/hr 11/05/21 12:00 11/07/21 13:00 Sodium Chloride IV 250 mls/hr Q12H [facility] Administration Insulin Human Lispro 0 unit 11/05/21 07:30 11/07/21 12:01 Insulin Lispro 100 Unit/Ml SUB-Q 2 unit ACHS [facility] Administration Protocol Magnesium Hydroxide 30 ml 11/05/21 00:10 Magnesium Hydroxide (Mom) Oral Liqd Udc PO Q4H PRN Constipation Morphine Sulfate 2 mg 11/05/21 00:10 Morphine 2 Mg/1 Ml Inj IV Q4H PRN Pain, Moderate (4-6) Morphine Sulfate 4 mg 11/05/21 00:10 Morphine 4 Mg/1 Ml Inj IV Q4H PRN Pain , Severe (7-10) Nifedipine 30 mg 11/06/21 13:00 11/07/21 09:47 Nifedipine Xl 30 Mg Tab PO 30 mg QDAY [facility] Administration Ondansetron HCl 4 mg 11/05/21 00:10 Ondansetron 4 Mg/2 Ml Inj IV Q8H PRN Nausea And Vomiting Sodium Chloride 10 ml 11/05/21 10:00 11/07/21 09:48 Sodium Chloride 0.9% 10 Ml Flush Syringe IV 10 ml BID [facility] Administration Sodium Chloride 10 ml 11/05/21 00:10 Sodium Chloride 0.9% 10 Ml Flush Syringe IV PRN PRN LINE FLUSH Nutrition/Malnutrition Assess - Dietary Evaluation Nutrition/Malnutrition Findings: Nutrition Notes Start: 11/05/21 12:25 Freq: Status: Active Protocol: Document 11/05/21 12:26 DARNELL (Rec: 11/05/21 12:36 DARNELL [id number]) Nutrition Notes Need for Assessment generated from: MD Order,Education Initial or Follow up Brief Note Current Diagnosis Diabetes,Hypertension Other Pertinent Diagnosis R-Foot Osteomyelitis. Current Diet Cardiac/Consistent Carbohydrates Diet (since B ). 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 No report available on Pt's PO intake of meals at the time. Pt presents a gradually- worsening 3-week open wound in the R-Foot. Pt still on ED, not a candidate for Nutrition Education at the time, will assess feasibility on F/U. Percent of energy/protein needs met: Prescribed Cardiac/Consistent Carbohydrates Diet provides for energy/protein needs (1, 977 Kcal/86 g) during LOS. Nutrition Intervention Follow-Up By: 11/10/21 Additional Comments Nutrition education will be provided on F/U, if feasible. Continue monitoring food tolerance, %PO intake of meals , and BM.
--- NOTE | 2021-11-07 16:46 | Consultation ---
History of Present Illness - Reason for Consult Consult date: 11/07/21 - History of Present Illness 51-year-old male past medical history hypertension, diabetes presented to hospital complaining of the right foot wound. He developed an abscess approximately 3 weeks prior to admission which spontaneously drained, and since then an open wound has developed in its place. Otherwise no issues, did not seek medical care during the abscess. Afebrile since admission with a white count of 8. Wound culture with group B strep. Imaging personally reviewed: Foot x-ray: Likely osteomyelitis at the base of the proximal phalanx of the fifth digit. Review of Systems: Bold if positive, otherwise negative General: fevers, chills, rigors HEENT: visual disturbance, diplopia, eye pain Respiratory: cough, sputum, hemoptysis, shortness of breath Cardiovascular: chest pain, syncope Gastrointestinal: nausea, vomiting, diarrhea, abdominal pain Genitourinary: dysuria, hematuria, flank pain Musculoskeletal: neck pain, back pain, joint pain, edema Neurologic: headaches, seizures Hematologic: easy bruising or bleeding Endocrine: night sweats, acute weight loss Skin: rash, jaundice, redness Psychiatric: suicidal, homicidal ideation Past History Past Medical History: diabetes Past Surgical History: No surgical history Social history: no significant social history Family history: no significant family history Medications and Allergies Allergies Allergy/AdvReac Type Severity Reaction Status Date / Time No Known Allergies Allergy Verified 11/04/21 18:37 Home Medications Medication Instructions Recorded Confirmed Last Taken Type No Known Home Medications [No 11/05/21 11/05/21 Unknown History Reported Home Medications] Active Meds: Active Medications Acetaminophen (Acetaminophen 325 Mg Tab) 650 mg PO Q4H PRN PRN Reason: Pain MILD(1-3)/Fever >100.5/[place] Dextrose (Dextrose 10% *Hypoglycemia) 0 ml IV DIRECT PRN; Protocol PRN Reason: Hypoglycemia Heparin Sodium (Porcine) (Heparin 5,000 Unit/1 Ml Vial) 5,000 unit SUB-Q Q8HR [facility] Last Admin: 11/07/21 13:00 Dose: 5,000 unit Hydralazine HCl (Hydralazine 20 Mg/1 Ml Inj) 10 mg IV Q4HR PRN PRN Reason: Hypertension Piperacillin Sod/Tazobactam Sod (Zosyn/Ns 4.5gm/100ml) 4.5 gm in 100 mls @ 200 mls/hr IV Q8H [facility]; Protocol Last Admin: 11/07/21 12:59 Dose: 200 mls/hr Vancomycin HCl 2,000 mg/ (Sodium Chloride) 540 mls @ 250 mls/hr IV Q12H [facility] Last Admin: 11/07/21 13:00 Dose: 250 mls/hr Insulin Human Lispro (Insulin Lispro 100 Unit/Ml) 0 unit SUB-Q ACHS [facility]; Protocol Last Admin: 11/07/21 12:01 Dose: 2 unit Magnesium Hydroxide (Magnesium Hydroxide (Mom) Oral Liqd Udc) 30 ml PO Q4H PRN PRN Reason: Constipation Morphine Sulfate (Morphine 2 Mg/1 Ml Inj) 2 mg IV Q4H PRN PRN Reason: Pain, Moderate (4-6) Morphine Sulfate (Morphine 4 Mg/1 Ml Inj) 4 mg IV Q4H PRN PRN Reason: Pain , Severe (7-10) Nifedipine (Nifedipine Xl 30 Mg Tab) 30 mg PO QDAY [facility] Last Admin: 11/07/21 09:47 Dose: 30 mg Ondansetron HCl (Ondansetron 4 Mg/2 Ml Inj) 4 mg IV Q8H PRN PRN Reason: Nausea And Vomiting Sodium Chloride (Sodium Chloride 0.9% 10 Ml Flush Syringe) 10 ml IV BID [facility] Last Admin: 11/07/21 09:48 Dose: 10 ml Sodium Chloride (Sodium Chloride 0.9% 10 Ml Flush Syringe) 10 ml IV PRN PRN PRN Reason: LINE FLUSH Physical Examination - Physical Exam Narrative exam: Physical Exam: Constitutional: Alert, cooperative. No acute distress Head, Ears, Nose: Normocephalic, atraumatic. External ears, nose normal Eyes: Conjunctivae/corneas clear. No icterus. No ptosis. Neck: Supple, no meningeal signs Oral: dentition fair, no thrush Cardiovascular: S1, S2 normal. Respiratory: Good air entry, clear to auscultation bilaterally GI: Soft, non-tender; bowel sounds normal. No peritoneal signs. Musculoskeletal: Right foot dorsal wound Skin: No rash or abscess Hem/Lymphatic: No palpable cervical or supraclavicular nodes. No lymphangitis Psych: Mood ok. Affect normal Neurological: Awake, alert, oriented. No gross abnormality - Constitutional Vitals: Vital Signs Temp Pulse Resp BP Pulse Ox 98.1 F 81 18 138/82 96 11/07/21 09:46 11/07/21 09:50 11/07/21 09:46 11/07/21 09:46 11/07/21 10:00 Temperature -Last 24 Hours Temperature 98.1 F Temperature 98.0 F Temperature 98.3 F Results - Labs CBC & Chem 7: 11/06/21 04:51 11/06/21 04:51 Labs: Abnormal lab results 11/06/21 11/07/21 11/07/21 Range/Units 21:24 07:37 11:40 POC Glucose 185 H 149 H 208 H (70-105) mg/dL 11/07/21 Range/Units 16:09 POC Glucose 181 H (70-105) mg/dL Assessment and Plan Cultures: Blood culture no growth so far Wound culture group B strep A/P: 51-year-old man past medical history morbid obesity, diabetes presented to hospital with right foot wound #Right foot osteomyelitis: Cultures with GBS. Has large and deep wound, will need prolonged wound care. Will plan on 6 weeks antibiotics. #Diabetes: tight glycemic control for best outcomes. #Morbid obesity Recs: -Stopped vancomycin and Zosyn -Started ceftriaxone 2 g every 24 hours -Case management consulted for ceftriaxone until 12/17/2021 -Ordered baseline CRP -Ordered PICC line Thank you for the consult, we will continue to follow. MD Sima Vanegas [facility] O: [phone] F: [phone]
[2021-11-07] MEDS: cefTRIAXone/NS 2 GM/100 ML 2 GM/100 ML BAG IV SCH (17:16)
[2021-11-08 06:11] LABS: BUN/Creatinine Ratio 10; Blood Urea Nitrogen 9 mg/dL (9-20); Calcium 8.7 mg/dL (8.4-10.2); Hemolysis Index 52
[2021-11-08] MEDS: HEPARIN 5,000 UNIT/1 ML VIAL SUB-Q SCH ×3 (06:33→22:08)
[2021-11-08] MEDS: NIFEdipine XL 30 MG TAB PO SCH (09:58)
[2021-11-08] MEDS: INSULIN LISPRO 100 UNIT/ML SUB-Q SCH ×4 (09:58→22:08)
--- NOTE | 2021-11-08 13:55 | Progress Note ---
Assessment and Plan Assessment and plan: #Diabetic foot ulcer #Presumbed osteomyelitis -Xray shows changes likely to be osteomyelitis at the base of the 5th digit of the R foot -Patient exceeds weight requirement for MRI -continue IV antibiotics (Rocephin 2 g every 24 hours). Patient will continue in outpatient setting until 12/17/2021. PICC line placement ordered. -Infectious disease consulted; appreciate recs. -wound care per nursing #Type II Diabetes with hyperglycemia -managed with diet outpatient, A1C 9.2% -discussed importance of glycemic control to patient and will require oral me dications at discharge -SSI while inpatient with accucheks -Referring to PCP for further management upon discharge. #Hypertension -continue nifedipine 30mg qday -Starting lisinopril 10 mg daily #Morbid obesity -BMI 51.4 -Counseled patient on the importance of weight loss, incorporating exercise, and dietary changes (lean meats, fresh fruits and vegetables, and water intake). Patient expresses understanding. -encouraged outpatient evaluation for bariatric surgery -Time: +15 min #Advanced care planning -Disease education conducted, care plan discussed, diagnoses discussed, prognosis discussed, and patient acknowledges understanding with care plan -Time: +30 min #Discharge planning - Patient is pending initiation of oral glycemic medication - Case management has been made aware. - Discharge is tentatively 11/09/2021 Disposition Plan: Pending possible discharge home tomorrow Total Time Spent with Patient (Minutes): 45 minutes History Interval history: No acute events overnight. Hospitalist Physical - Constitutional Vitals: Temp Pulse Resp BP Pulse Ox 97.7 F 81 18 129/69 94 11/08/21 11:00 11/08/21 11:00 11/08/21 11:00 11/08/21 11:00 11/08/21 11:00 General appearance: Present: no acute distress, well-nourished, obese - EENT Eyes: Present: PERRL, EOM intact ENT: hearing intact, clear oral mucosa, dentition normal - Neck Neck: Present: supple, normal ROM - Respiratory Respiratory effort: normal Respiratory: bilateral: CTA - Cardiovascular Rhythm: regular Heart Sounds: Present: S1 & S2 - Extremities Extremities: pulses intact, pulses symmetrical, normal temperature, abnormal (Diabetic ulcer of right foot with draining abscess; wrapped in Kerlix bandage) Peripheral Pulses: within normal limits - Abdominal General gastrointestinal: soft, non-tender, non-distended, normal bowel sounds - Integumentary Integumentary: Present: clear, warm, dry - Psychiatric Psychiatric: appropriate mood/affect, intact judgment & insight, memory intact, cooperative - Neurologic Neurologic: CNII-XII intact, moves all extremities - Allied Health Allied health notes reviewed: nursing Results - Labs CBC & Chem 7: 11/06/21 04:51 11/08/21 05:28 Labs: Laboratory Last Values WBC 8.0 K/mm3 (4.5-11.0) 11/06/21 04:51 RBC 4.18 M/mm3 (3.65-5.03) 11/06/21 04:51 Hgb 11.5 gm/dl (11.8-15.2) L 11/06/21 04:51 Hct 31.8 % (35.5-45.6) L 11/06/21 04:51 MCV 76 fl (84-94) L 11/06/21 04:51 MCH 28 pg (28-32) 11/06/21 04:51 MCHC 36 % (32-34) H 11/06/21 04:51 RDW 16.5 % (13.2-15.2) H 11/06/21 04:51 Plt Count 446 K/mm3 (140-440) H 11/06/21 04:51 Lymph % (Auto) 28.8 % (13.4-35.0) 11/06/21 04:51 [place] % (Auto) 10.2 % (0.0-7.3) H 11/06/21 04:51 Eos % (Auto) 5.2 % (0.0-4.3) H 11/06/21 04:51 Baso % (Auto) 1.0 % (0.0-1.8) 11/06/21 04:51 Lymph # (Auto) 2.3 K/mm3 (1.2-5.4) 11/06/21 04:51 [place] # (Auto) 0.8 K/mm3 (0.0-0.8) 11/06/21 04:51 Eos # (Auto) 0.4 K/mm3 (0.0-0.4) 11/06/21 04:51 Baso # (Auto) 0.1 K/mm3 (0.0-0.1) 11/06/21 04:51 Seg Neutrophils % 54.8 % (40.0-70.0) 11/06/21 04:51 Seg Neutrophils # 4.4 K/mm3 (1.8-7.7) 11/06/21 04:51 PT 14.2 Sec. (12.2-14.9) 11/04/21 21:47 INR 0.99 (0.87-1.13) 11/04/21 21:47 APTT 26.3 Sec. (24.2-36.6) 11/04/21 21:47 Sodium 138 mmol/L (137-145) 11/08/21 05:28 Potassium 4.0 mmol/L (3.6-5.0) 11/08/21 05:28 Chloride 103.8 mmol/L (98-107) 11/08/21 05:28 Carbon Dioxide 22 mmol/L (22-30) 11/08/21 05:28 Anion Gap 16 mmol/L 11/08/21 05:28 BUN 9 mg/dL (9-20) 11/08/21 05:28 Creatinine 0.9 mg/dL (0.8-1.3) 11/08/21 05:28 Estimated GFR > 60 ml/min 11/08/21 05:28 BUN/Creatinine Ratio 10 % 11/08/21 05:28 Glucose 153 mg/dL (75-100) H 11/08/21 05:28 POC Glucose 168 mg/dL (70-105) H 11/08/21 10:58 Hemoglobin A1c 9.2 % (4-6) H 11/04/21 21:47 Lactic Acid 1.60 mmol/L (0.7-2.0) 11/04/21 21:51 Calcium 8.7 mg/dL (8.4-10.2) 11/08/21 05:28 Total Bilirubin < 0.20 mg/dL (0.1-1.2) 11/04/21 21:47 AST 10 units/L (5-40) 11/04/21 21:47 ALT 14 units/L (7-56) 11/04/21 21:47 Alkaline Phosphatase 157 units/L (35-129) H 11/04/21 21:47 C-Reactive Protein 5.70 mg/dL (0.00-1.30) H 11/08/21 05:28 Total Protein 7.9 g/dL (6.3-8.2) 11/04/21 21:47 Albumin 3.5 g/dL (3.9-5) L 11/04/21 21:47 Albumin/Globulin Ratio 0.8 % 11/04/21 21:47 Urine Color Yellow (Yellow) 11/05/21 06:00 Urine Turbidity Clear (Clear) 11/05/21 06:00 Urine pH 5.0 (5.0-7.0) 11/05/21 06:00 Ur Specific [place] 1.017 (1.003-1.030) 11/05/21 06:00 Urine Protein <15 mg/dl mg/dL (Negative) 11/05/21 06:00 Urine Glucose (UA) Neg mg/dL (Negative) 11/05/21 06:00 Urine Ketones Neg mg/dL (Negative) 11/05/21 06:00 Urine Blood Neg (Negative) 11/05/21 06:00 Urine Nitrite Neg (Negative) 11/05/21 06:00 Urine Bilirubin Neg (Negative) 11/05/21 06:00 Urine Urobilinogen < 2.0 mg/dL (<2.0) 11/05/21 06:00 Ur Leukocyte Esterase Neg (Negative) 11/05/21 06:00 Urine WBC (Auto) 1.0 /HPF (0.0-6.0) 11/05/21 06:00 Urine RBC (Auto) 1.0 /HPF (0.0-6.0) 11/05/21 06:00 Vancomycin Trough 15.5 ug/mL (5.0-20.0) 11/06/21 11:54 Microbiology: Microbiology 11/04/21 21:51 Peripheral/Venous Blood Culture - Preliminary NO GROWTH AFTER 72 HOURS 11/04/21 21:51 Peripheral/Venous Blood Culture - Preliminary NO GROWTH AFTER 72 HOURS 11/05/21 Unknown Foot - Right Wound Culture - Preliminary Beta Hemolytic Strep Group B [place]/IV: Voiding Method Toilet Active Medications - Current Medications Current Medications: Generic Name Dose Route Start Last Admin Trade Name Freq PRN Reason Stop Dose Admin Acetaminophen 650 mg 11/05/21 00:10 Acetaminophen 325 Mg Tab PO Q4H PRN Pain MILD(1-3)/Fever >100.5/[place] Dextrose 0 ml 11/05/21 00:44 Dextrose 10% *Hypoglycemia IV DIRECT PRN Hypoglycemia Protocol Heparin Sodium (Porcine) 5,000 unit 11/05/21 06:00 11/08/21 06:33 Heparin 5,000 Unit/1 Ml Vial SUB-Q 5,000 unit Q8HR [facility] Administration Hydralazine HCl 10 mg 11/06/21 12:19 Hydralazine 20 Mg/1 Ml Inj IV Q4HR PRN Hypertension Ceftriaxone Sodium 2 gm in 100 mls @ 200 mls/hr 11/07/21 18:00 11/07/21 17:16 Rocephin/Ns 2 Gm/100 Ml IV 12/17/21 18:29 200 mls/hr Q24H [facility] Administration Protocol Insulin Human Lispro 0 unit 11/05/21 07:30 11/08/21 12:32 Insulin Lispro 100 Unit/Ml SUB-Q 1 unit ACHS [facility] Administration Protocol Magnesium Hydroxide 30 ml 11/05/21 00:10 Magnesium Hydroxide (Mom) Oral Liqd Udc PO Q4H PRN Constipation Morphine Sulfate 2 mg 11/05/21 00:10 Morphine 2 Mg/1 Ml Inj IV Q4H PRN Pain, Moderate (4-6) Morphine Sulfate 4 mg 11/05/21 00:10 Morphine 4 Mg/1 Ml Inj IV Q4H PRN Pain , Severe (7-10) Nifedipine 30 mg 11/06/21 13:00 11/08/21 09:58 Nifedipine Xl 30 Mg Tab PO 30 mg QDAY [facility] Administration Ondansetron HCl 4 mg 11/05/21 00:10 Ondansetron 4 Mg/2 Ml Inj IV Q8H PRN Nausea And Vomiting Sodium Chloride 10 ml 11/05/21 10:00 11/08/21 09:59 Sodium Chloride 0.9% 10 Ml Flush Syringe IV 10 ml BID [facility] Administration Sodium Chloride 10 ml 11/05/21 00:10 Sodium Chloride 0.9% 10 Ml Flush Syringe IV PRN PRN LINE FLUSH Nutrition/Malnutrition Assess - Dietary Evaluation Nutrition/Malnutrition Findings: Nutrition Notes Start: 11/05/21 12:25 Freq: Status: Active Protocol: Document 11/05/21 12:26 DARNELL (Rec: 11/05/21 12:36 DARNELL [id number]) Nutrition Notes Need for Assessment generated from: MD Order,Education Initial or Follow up Brief Note Current Diagnosis Diabetes,Hypertension Other Pertinent Diagnosis R-Foot Osteomyelitis. Current Diet Cardiac/Consistent Carbohydrates Diet (since B ). 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 No report available on Pt's PO intake of meals at the time. Pt presents a gradually- worsening 3-week open wound in the R-Foot. Pt still on ED, not a candidate for Nutrition Education at the time, will assess feasibility on F/U. Percent of energy/protein needs met: Prescribed Cardiac/Consistent Carbohydrates Diet provides for energy/protein needs (1, 977 Kcal/86 g) during LOS. Nutrition Intervention Follow-Up By: 11/10/21 Additional Comments Nutrition education will be provided on F/U, if feasible. Continue monitoring food tolerance, %PO intake of meals , and BM.
[2021-11-08] MEDS: LISINOPRIL 10 MG TAB PO SCH (14:27)
[2021-11-08] MEDS: metFORMIN 850 MG TAB PO SCH (17:37)
[2021-11-08] MEDS: cefTRIAXone/NS 2 GM/100 ML 2 GM/100 ML BAG IV SCH (17:39)
[2021-11-09 04:59] VITALS: BP 120/72
[2021-11-09] MEDS: HEPARIN 5,000 UNIT/1 ML VIAL SUB-Q SCH ×2 (05:02→14:14)
[2021-11-09 08:01] LABS: Basophils # (Auto) 0.1 K/mm3 (0.0-0.1); Basophils % (Auto) 1.1 % (0.0-1.8); Eosinophils # (Auto) 0.4 K/mm3 (0.0-0.4); Eosinophils % (Auto) 3.4 % (0.0-4.3); Hematocrit 36.3 % (35.5-45.6); Hemoglobin 12.6 gm/dl (11.8-15.2); Lymphocytes # (Auto) 2.7 K/mm3 (1.2-5.4); Mean Corpuscular HGB Conc 35 % (32-34); Mean Corpuscular Volume 76 fl (84-94); Platelet Count 442 K/mm3 (140-440); Red Blood Count 4.78 M/mm3 (3.65-5.03); Red Cell Distribution Width 16.8 % (13.2-15.2)
[2021-11-09] MEDS: INSULIN LISPRO 100 UNIT/ML SUB-Q SCH ×2 (08:17→12:13)
[2021-11-09 08:22] LABS: BUN/Creatinine Ratio 10; Blood Urea Nitrogen 11 mg/dL (9-20); Calcium 9.2 mg/dL (8.4-10.2); Hemolysis Index 3
[2021-11-09] MEDS: metFORMIN 850 MG TAB PO SCH (09:24)
[2021-11-09] MEDS: LISINOPRIL 10 MG TAB PO SCH (09:25)
[2021-11-09] MEDS: NIFEdipine XL 30 MG TAB PO SCH (09:25)
--- NOTE | 2021-11-09 12:17 | Discharge Summary ---
Providers - Providers Date of Admission: 11/05/21 00:11 Date of discharge: 11/09/21 Attending physician: RANDA HANNA MD 11/05/21 00:11 Consult to Dietitian/Nutrition [CONS] Routine Physician Instructions: Reason For Exam: Reason for Consult: Diet education 11/05/21 00:25 Consult to Wound/ET Nurse [CONS] Routine Reason For Exam: wound eval 11/05/21 00:26 Consult to Physician [CONS] Routine Comment: Consulting Provider: MARLEN SHAVER Physician Instructions: Reason For Exam: Right foot Osteomyelitis 11/07/21 08:35 Consult to Physician [CONS] Routine Comment: Consulting Provider: CEE BANSAL Physician Instructions: Reason For Exam: R foot osteo 11/07/21 09:40 Physical Therapy Evaluation and Treat [CONS] Stat Comment: Reason For Exam: eval and treat 11/07/21 09:41 Occupational Therapy Evaluate and Treat [CONS] Stat Comment: Reason For Exam: eval and treat 11/07/21 16:46 Consult to Case Management [CONS] Routine Services Needed at Discharge: Home Health Services Notified:: Additional Physician Instructions: Francisco Bansal MD [facility] ([facility] M: [phone] O: [phone] F: [phone] Outpatient parenteral antibiotic therapy orders Diagnosis: Right foot osteomyelitis Antibiotic administration: Ceftriaxone 2 g every 24 hours until 12/17/2021 Line: PICC line Lab monitoring: CBC with differential, BUN, creatinine, LFTs, CRP once per week preferably on Sunday or Sunday For critical labs, call office: [phone] Francisco Bansal Primary care physician: MVA REACTOR OPERATOR Hospitalization Reason for admission: Acute osteomyelitis secondary to diabetic foot ulcer Condition: Stable Pertinent studies: Reviewed. Procedures: None. Hospital course: Mr. Gabriel is a 51-year-old male past medical history of hypertension and morbid obesity who presented with complaints of purulent drainage from his right foot that was being expressed from an abscess over approximately 3 weeks. Patient describes soaking his foot in warm sitz bath but not having any improvement clinically. In the ED the patient was found to be hemodynamically stable however, he was found to have a hemoglobin A1c of of 9.2 (signifying a new diagnosis of diabetes mellitus type 2). The patient was initiated on IV antibiotics (vancomycin and and Zosyn) for antibiotic coverage. Infectious disease was consulted for further management. Given the patient's presentation of his right foot, there was concern for acute osteomyelitis; however, the patient was unable to obtain an MRI due to weight limits. A wound culture was performed that revealed beta-hemolytic strep group B. Blood cultures were negative for any growth. Patient was transitioned to ceftriaxone 2 g every 24 hours further management the patient will continue with IV antibiotics until 12/17/2021. The patient has been educated on how to administer IV antibiotics at home, and a PICC has been placed for further assistance. Patient was counseled about lifestyle changes (weight loss, exercising, and dietary changes) in addition to following up with a PCP regarding management of his new diagnosis. Patient expresses understanding. Patient is medically clear for discharge. Disposition: 01 HOME / SELF CARE / HOMELESS Final Discharge Diagnosis (Prints w/discharge instructions): Diabetic foot ulcer, acute osteomyelitis of right foot secondary to diabetic foot ulcer, newly diagnosed type 2 diabetes mellitus with hyperglycemia, hypertension, morbid obesity Time spent for discharge: 45 min Core Measure Documentation - Palliative Care Palliative Care/ Comfort Measures: Not Applicable - Core Measures Any of the following diagnoses?: none Exam - Constitutional Vitals: Temp Pulse Resp BP Pulse Ox 97.6 F 76 18 120/72 100 11/09/21 04:24 11/09/21 04:24 11/09/21 04:24 11/09/21 04:24 11/09/21 07:17 General appearance: Present: no acute distress, well-nourished, obese - EENT Eyes: Present: PERRL, EOM intact ENT: hearing intact, clear oral mucosa - Neck Neck: Present: supple, normal ROM - Respiratory Respiratory effort: normal Respiratory: bilateral: CTA - Cardiovascular Rhythm: regular Heart Sounds: Present: S1 & S2 - Extremities Extremities: pulses intact, pulses symmetrical, Full ROM, abnormal (Draining diabetic ulcer of right foot; bandaged and Kerlix wrap) Extremity abnormal: edema, ulceration, tenderness Peripheral Pulses: within normal limits - Abdominal General gastrointestinal: Present: soft, non-tender, non-distended, normal bowel sounds Male genitourinary: Present: deferred - Rectal Rectal Exam: deferred - Integumentary Integumentary: Present: clear, warm, dry - Musculoskeletal Musculoskeletal: strength equal bilaterally - Psychiatric Psychiatric: appropriate mood/affect, intact judgment & insight, memory intact, cooperative - Neurologic Neurologic: CNII-XII intact, moves all extremities - Allied Health Allied health notes reviewed: nursing Plan Activity: advance as tolerated Diet: low salt, diabetic Wound: keep clean and dry, change dressing (Change dressing daily) Special Instructions: record blood sugar diary Additional Instructions: Mr. Gabriel is a 51-year-old male past medical history of hypertension and morbid obesity who presented with complaints of purulent drainage from his right foot that was being expressed from an abscess over approximately 3 weeks. Patient describes soaking his foot in warm sitz bath but not having any improvement clinically. In the ED the patient was found to be hemodynamically stable however, he was found to have a hemoglobin A1c of of 9.2 (signifying a new diagnosis of diabetes mellitus type 2). The patient was initiated on IV antibiotics (vancomycin and and Zosyn) for antibiotic coverage. Infectious disease was consulted for further management. Given the patient's presentation of his right foot, there was concern for acute osteomyelitis; however, the patient was unable to obtain an MRI due to weight limits. A wound culture was performed that revealed beta-hemolytic strep group B. Blood cultures were negative for any growth. Patient was transitioned to ceftriaxone 2 g every 24 hours further management the patient will continue with IV antibiotics until 12/17/2021. The patient has been educated on how to administer IV antibiotics at home, and a PICC has been placed for further assistance. Patient was counseled about lifestyle changes (weight loss, exercising, and dietary changes) in addition to following up with a PCP regarding management of his new diagnosis. Patient expresses understanding. Patient is medically clear for discharge. Care Plan Goals: Patient is medically clear for discharge. Assessment: Mr. Gabriel is a 51-year-old male past medical history of hypertension and morbid obesity who presented with complaints of purulent drainage from his right foot that was being expressed from an abscess over approximately 3 weeks. Patient d escribes soaking his foot in warm sitz bath but not having any improvement clinically. In the ED the patient was found to be hemodynamically stable however, he was found to have a hemoglobin A1c of of 9.2 (signifying a new diagnosis of diabetes mellitus type 2). The patient was initiated on IV antibiotics (vancomycin and and Zosyn) for antibiotic coverage. Infectious disease was consulted for further management. Given the patient's presentation of his right foot, there was concern for acute osteomyelitis; however, the patient was unable to obtain an MRI due to weight limits. A wound culture was performed that revealed beta-hemolytic strep group B. Blood cultures were negative for any growth. Patient was transitioned to ceftriaxone 2 g every 24 hours further management the patient will continue with IV antibiotics until 12/17/2021. The patient has been educated on how to administer IV antibiotics at home, and a PICC has been placed for further assistance. Patient was counseled about lifestyle changes (weight loss, exercising, and dietary changes) in addition to following up with a PCP regarding management of his new diagnosis. Patient expresses understanding. Patient is medically clear for discharge. Follow up with: SIDDHARTHA HERRON MD [Staff Physician] - 14 Days PRIMARY CARE, [Primary Care Provider] - 3-5 Days Prescriptions: metFORMIN [Glucophage] 850 mg PO BIDDIAB #60 tablet NIFEdipine XL [Procardia Xl] 30 mg PO QDAY #30 tablet lisinopriL [Zestril TAB] 10 mg PO QDAY #30 tablet
== END 2021-11-09 15:21 | disposition home health service (06) | DRG 638 ==
LOC: ED 18:33 → 3A 11-05 00:11
PROVIDERS: ADMIT Internal Medicine Geriatric Medicine; ATTEND Student in an Organized Health Care Education/Training Program
PROC: 02HV33Z Insertion of Infusion Device into Superior Vena Cava, Percutaneous Approach (ICD-10-PCS; principal; 2021-11-09)
DX: E11.69 Type 2 diabetes mellitus with other specified complication (principal); M86.171 Other acute osteomyelitis, right ankle and foot; Z68.43 Body mass index [BMI] 50.0-59.9, adult; E11.621 Type 2 diabetes mellitus with foot ulcer; E66.01 Morbid (severe) obesity due to excess calories; E11.65 Type 2 diabetes mellitus with hyperglycemia; L97.519 Non-pressure chronic ulcer of other part of right foot with unspecified severity; I10 Essential (primary) hypertension; Z71.3 Dietary counseling and surveillance
CPT/HCPCS: 36415; 80048; 80053; 80202; 81001; 82140; 82962; 83036; 85025; 85610; 85730; 86140; 87040; 87076; 87116; 87186; G0378; J3490; Q0162; Q9967; J0696; J1644; J1815; J2543; J3370; J7030; J7040